=== PATIENT | female | born 1960 | race Caucasian/White ===

== ENCOUNTER 2017-03-27 00:26 | Emergency (ER) | payer OTHER ==
--- NOTE | 2017-03-27 01:52 | Emergency Department Report ---
HPI - General Chief Complaint: Psych Time Seen by Provider: 03/27/17 01:38 - HPI HPI: Room 10 The patient is a 48-year-old female presenting with a chief complaint of suicidal ideation and medication overdose. Family states that 23:20 the patient told her she was sad because of her family and was witnessed consuming multiple medications as a suicide attempt. The medications include Tylenol, Panalol, Motrin, Advil, paracetamol and Tylenol Cold and flu. Patient complains of feeling tired and having an upset stomach. The patient's daughter called EMS Location: Mental state, see above Duration: [see above] Quality: Suicidal Severity: Severe Modifying factors: [see above] Context: [see above] Mode of transportation: EMS ED Past Medical Hx - Past Medical History Previous Medical History?: Yes Hx Psychiatric Treatment: Yes - Surgical History Past Surgical History?: Yes - Family History Family history: no significant - Social History Smoking Status: Never Smoker Substance Use Type: None - Medications Home Medications: Home Medications Medication Instructions Recorded Confirmed Last Taken Type Unobtainable 03/27/17 03/27/17 Unknown History ED Review of Systems ROS: Stated complaint: SUICIDAL Other details as noted in HPI Comment: All other systems reviewed and negative Constitutional: malaise. denies: chills, fever Eyes: denies: eye pain, eye discharge, vision change ENT: denies: ear pain, throat pain Respiratory: denies: cough, shortness of breath, wheezing Gastrointestinal: abdominal pain, nausea Psychiatric: suicidal thoughts Physical Exam - Physical Exam Vital Signs: Vital Signs 03/27/17 00:57 Temperature 97.8 F Pulse Rate 70 Respiratory 19 Rate Blood Pressure 141/86 Blood Pressure 141/86 [Right] O2 Sat by Pulse 96 Oximetry Vital Signs 03/27/17 03/27/17 03/27/17 00:57 01:53 02:30 Temperature 97.8 F Pulse Rate 70 67 70 Respiratory 19 18 20 Rate Blood Pressure 141/86 Blood Pressure 141/86 138/81 127/87 [Right] O2 Sat by Pulse 96 98 99 Oximetry 03/27/17 03/27/17 03:30 04:30 Temperature Pulse Rate 69 65 Respiratory 20 18 Rate Blood Pressure Blood Pressure 124/85 137/91 [Right] O2 Sat by Pulse 99 99 Oximetry Physical Exam: GENERAL: The patient is well-developed well-nourished female lying on stretcher appearing emotionally distraught. [] HEENT: Normocephalic. Atraumatic. Extraocular motions are intact. Patient has moist mucous membranes. NECK: Supple. Trachea midline CHEST/LUNGS: Clear to auscultation. There is no respiratory distress noted. HEART/CARDIOVASCULAR: Regular. There is no tachycardia. There is no gallop rub or murmur. ABDOMEN: Abdomen is soft, nontender. Patient has normal bowel sounds. There is no abdominal distention. SKIN: There is no rash. There is no edema. There is no diaphoresis. NEURO: The patient is awake, alert, and oriented. The patient has normal speech MUSCULOSKELETAL: There is no evidence of acute injury. ED Course Vital Signs 03/27/17 00:57 Temperature 97.8 F Pulse Rate 70 Respiratory 19 Rate Blood Pressure 141/86 Blood Pressure 141/86 [Right] O2 Sat by Pulse 96 Oximetry - Consultations Consultation #1: 03/27/17 01:51 Poison control called 03/27/17 02:10 Case discussed with poison control. Recommends following 4 hours acetaminophen level. If all levels negative and patient is asymptomatic she may be cleared for psych after 6-8 hours observation. ED Medical Decision Making - Lab Data Result diagrams: 03/27/17 01:32 03/27/17 01:32 Laboratory Tests 03/27/17 03/27/17 03/27/17 01:32 01:32 01:32 WBC 10.4 RBC 4.22 Hgb 12.7 Hct 37.8 MCV 90 MCH 30 MCHC 34 RDW 13.5 Plt Count 201 Lymph % (Auto) 21.6 George % (Auto) 8.7 H Eos % (Auto) 1.4 Baso % (Auto) 0.5 Lymph # 2.3 George # 0.9 H Eos # 0.1 Baso # 0.0 Seg Neutrophils % 67.8 Seg Neutrophils # 7.1 Sodium 139 Potassium 4.1 Chloride 101.5 Carbon Dioxide 22 Anion Gap 20 BUN 19 H Creatinine 0.5 L Estimated GFR > 60 BUN/Creatinine Ratio 38.00 Glucose 121 H Calcium 9.4 Total Bilirubin 0.20 AST 25 ALT 21 Alkaline Phosphatase 61 Total Protein 6.9 Albumin 3.9 Albumin/Globulin Ratio 1.3 Urine Color Urine Turbidity Urine pH Ur Specific Conway Urine Protein Urine Glucose (UA) Urine Ketones Urine Blood Urine Nitrite Urine Bilirubin Urine Urobilinogen Ur Leukocyte Esterase Urine WBC (Auto) Urine RBC (Auto) Urine Bacteria (Auto) Amorphous Crystals Urine Mucus Salicylates < 0.3 L Urine Opiates Screen Urine Methadone Screen Acetaminophen Ur Barbiturates Screen Ur Phencyclidine Scrn Ur Amphetamines Screen U Benzodiazepines Scrn Urine Cocaine Screen U Marijuana (THC) Screen Drugs of Abuse Note Plasma/Serum Alcohol 03/27/17 03/27/17 03/27/17 01:32 01:38 03:20 WBC RBC Hgb Hct MCV MCH MCHC RDW Plt Count Lymph % (Auto) George % (Auto) Eos % (Auto) Baso % (Auto) Lymph # George # Eos # Baso # Seg Neutrophils % Seg Neutrophils # Sodium Potassium Chloride Carbon Dioxide Anion Gap BUN Creatinine Estimated GFR BUN/Creatinine Ratio Glucose Calcium Total Bilirubin AST ALT Alkaline Phosphatase Total Protein Albumin Albumin/Globulin Ratio Urine Color Urine Turbidity Urine pH Ur Specific Conway Urine Protein Urine Glucose (UA) Urine Ketones Urine Blood Urine Nitrite Urine Bilirubin Urine Urobilinogen Ur Leukocyte Esterase Urine WBC (Auto) Urine RBC (Auto) Urine Bacteria (Auto) Amorphous Crystals Urine Mucus Salicylates Urine Opiates Screen Urine Methadone Screen Acetaminophen 77.1 H 81.7 H Ur Barbiturates Screen Ur Phencyclidine Scrn Ur Amphetamines Screen U Benzodiazepines Scrn Urine Cocaine Screen U Marijuana (THC) Screen Drugs of Abuse Note Plasma/Serum Alcohol < 0.01 03/27/17 03/27/17 03/27/17 03:20 Unknown Unknown WBC RBC Hgb Hct MCV MCH MCHC RDW Plt Count Lymph % (Auto) George % (Auto) Eos % (Auto) Baso % (Auto) Lymph # George # Eos # Baso # Seg Neutrophils % Seg Neutrophils # Sodium Potassium Chloride Carbon Dioxide Anion Gap BUN Creatinine Estimated GFR BUN/Creatinine Ratio Glucose Calcium Total Bilirubin AST ALT Alkaline Phosphatase Total Protein Albumin Albumin/Globulin Ratio Urine Color Yellow Urine Turbidity Clear Urine pH 7.0 Ur Specific Conway 1.019 Urine Protein <15 mg/dl Urine Glucose (UA) Neg Urine Ketones Neg Urine Blood Sm Urine Nitrite Neg Urine Bilirubin Neg Urine Urobilinogen < 2.0 Ur Leukocyte Esterase Neg Urine WBC (Auto) 1.0 Urine RBC (Auto) 9.0 Urine Bacteria (Auto) 1+ Amorphous Crystals Few Urine Mucus Few Salicylates < 0.3 L Urine Opiates Screen Presumptive negative Urine Methadone Screen Presumptive negative Acetaminophen Ur Barbiturates Screen Presumptive negative Ur Phencyclidine Scrn Presumptive negative Ur Amphetamines Screen Presumptive negative U Benzodiazepines Scrn Presumptive negative Urine Cocaine Screen Presumptive negative U Marijuana (THC) Screen Presumptive negative Drugs of Abuse Note Disclamer Plasma/Serum Alcohol - EKG Data -: EKG Interpreted by Me EKG shows normal: sinus rhythm Rate: normal - EKG Data When compared to previous EKG there are: previous EKG unavailable Interpretation: other (QRS 86 ms. QTc 424 ms) - Differential Diagnosis suicidal ideation, drug overdose Critical care attestation.: If time is entered above; I have spent that time in minutes in the direct care of this critically ill patient, excluding procedure time. ED Disposition Clinical Impression: Suicidal ideation, Intentional drug overdose Disposition: [id number] PSY HOSP/PSY UNIT Is pt being admited?: No Does the pt Need Aspirin: No Condition: Serious Referrals: PRIMARY CARE, [Primary Care Provider] - 3-5 Days Time of Disposition: 05:56 (awaiting acceptance)
[2017-03-27 02:03] LABS: Basophils % (Auto) 0.5 % (0.0-1.8); Eosinophils % (Auto) 1.4 % (0.0-4.3); Hematocrit 37.8 % (30.3-42.9); Hemoglobin 12.7 gm/dl (10.1-14.3); Mean Corpuscular HGB Conc 34 % (30-34); Mean Corpuscular Hemoglobin 30 pg (28-32); Mean Corpuscular Volume 90 fl (79-97); Platelet Count 201 K/mm3 (140-440); Red Blood Count 4.22 M/mm3 (3.65-5.03); Red Cell Distribution Width 13.5 % (13.2-15.2); White Blood Count 10.4 K/mm3 (4.5-11.0)
[2017-03-27 02:16] LABS: Alanine Aminotransferase 21 units/L (7-56); Albumin 3.9 g/dL (3.9-5); Albumin/Globulin Ratio 1.3 %; Alkaline Phosphatase 61 units/L (35-129); Anion Gap 20 mmol/L; Blood Urea Nitrogen 19 mg/dL (7-17); Calcium 9.4 mg/dL (8.4-10.2); Carbon Dioxide 22 mmol/L (22-30); Chloride 101.5 mmol/L (98-107); Glucose 121 mg/dL (65-100); Potassium 4.1 mmol/L (3.6-5.0); Sodium 139 mmol/L (137-145); Total Protein 6.9 g/dL (6.3-8.2)
[2017-03-27] MEDS: ACTIDOSE-AQUA PO ONE ×2 (03:00→07:22)
[2017-03-27] MEDS: ZOFRAN IV ONE ×2 (03:00→07:23)
[2017-03-27 03:41] LABS: Urine Drugs of Abuse Note Disclamer
[2017-03-27 04:10] LABS: Bacteria,Urine 1+ /HPF (Negative); Bilirubin,Urine NEG (Negative); Blood,Urine SM (Negative); Ketones,Urine NEG (Negative); Leukocyte Esterase,Urine NEG (Negative); Mucus,Urine FEW /HPF; Nitrite,Urine NEG (Negative); Protein,Urine <15 mg/dL mg/dL (Negative); Urobilinogen,Urine < 2.0 mg/dL (<2.0)
[2017-03-27] MEDS ORDERED: ACTIDOSE-AQUA ONE (04:15)
[2017-03-27] MEDS ORDERED: ZOFRAN ONE (04:17)
[2017-03-27 07:38] VITALS: BP 133/79
== END 2017-03-27 13:23 ==
LOC: ED 00:26
DX: T39.1X2A Poisoning by 4-Aminophenol derivatives, intentional self-harm, initial encounter (principal); Y92.9 Unspecified place or not applicable
CPT/HCPCS: 36415; 80053; 80307; 81001; 85025; 93005; 93010; 99285; G0480; J2405; 80320